=== PATIENT | female | born 1950 | race Caucasian/White ===

== ENCOUNTER → 2017-01-25 | Outpatient (CLI) | payer MEDICARE | END | disposition home or self-care (01) | LOC: RAD 01-24 13:30 | DX: M81.0 Age-related osteoporosis without current pathological fracture (principal); Z76.89 Persons encountering health services in other specified circumstances ==

== ENCOUNTER → 2017-02-01 | Outpatient (CLI) | payer MEDICARE | LOC: MAMMO 01-25 14:00 | DX: Z12.31 Encounter for screening mammogram for malignant neoplasm of breast (principal) ==

== ENCOUNTER → 2017-03-29 | Day surgery (SDC) | payer MEDICARE ==
[~2017-03-29] VITALS: Ht 154.9 cm; Wt 58.1 kg
[~2017-03-29] MED LIST: MAXZIDE 75 MG-1 EACH PO
--- NOTE | ~2017-03-29 | O ---
[place], [place] OPERATIVE NOTE NAME: LOTUS HAINES TY UNIT #: [id number] ROOM: DOCTOR: BILL RDZ MD BIRTHDATE: [birth year] DOS: 03/29/2017 This is a 66-year-old patient who has presented with colonic screening. ALLERGIES: TRAMADOL, FOSAMAX. FAMILY HISTORY: Noncontributory. PAST SURGICAL HISTORY: Tubal and back. PAST MEDICAL HISTORY: Meniere's disease. SOCIAL HISTORY: Nonsmoker, rare alcohol consumer. PROCEDURE: Today's procedure part of investigation is colonoscopy. PREMEDICATION: Versed and Diprivan. SCOPE: Olympus folding colonoscope 10L video. REPORT: After putting the patient in left lateral position and application of lubricant to the scope, the scope was introduced. Thereafter, under direct visualization, advanced through the length of colon without difficulty. Base of the cecum explored. ____ surface identified, ileocecal valve identified. Diverticulosis of moderate degree in the left side of the colon appreciated. Air was suctioned out. The patient was extubated, tolerated the procedure well. IMPRESSION: Diverticulosis of left colon. Otherwise, no polypoid lesion, no other pathology of concern. PLAN AND DISCUSSION: High fiber diet. ACTIVITY: Ad cassius. We will followup routinely with you in office, p.r.n. visit with us in [facility]. I thank you very much indeed for your kind referral [place], [place] OPERATIVE NOTE NAME: LOTUS HAINES TY UNIT #: [id number] ROOM: DOCTOR: BILL RDZ MD BIRTHDATE: [birth year] BILL RDZ MD CM:OPRECORD:OPERATIVE NOTE [id number] BILL RDZ MD 03/29/17 1149 interface
[2017-03-29 07:20] VITALS: BP 144/75
[2017-03-29 09:21] VITALS: BP 95/53
[2017-03-29 09:36] VITALS: BP 114/71
[2017-03-29 09:51] VITALS: BP 130/79
== END | disposition home or self-care (01) ==
LOC: SDC 03-24 10:15
DX: Z12.11 Encounter for screening for malignant neoplasm of colon (principal); K57.30 Diverticulosis of large intestine without perforation or abscess without bleeding; Z88.8 Allergy status to other drugs, medicaments and biological substances; Z98.890 Other specified postprocedural states
CPT/HCPCS: 00810; G0121

== ENCOUNTER → 2019-04-15 | Outpatient (CLI) | payer MEDICARE ==
[~2019-04-15] MED LIST changes: +Motrin,Rufen800 MG PO
== END | disposition home or self-care (01) ==
LOC: RAD 01:34 → MAMMO 08:00
DX: Z12.39 Encounter for other screening for malignant neoplasm of breast (principal); M81.0 Age-related osteoporosis without current pathological fracture; E55.9 Vitamin D deficiency, unspecified; Z78.0 Asymptomatic menopausal state

== ENCOUNTER → 2019-04-25 | Outpatient (CLI) | payer MEDICARE | END | disposition home or self-care (01) | LOC: MAMMO 00:13 | DX: Z12.31 Encounter for screening mammogram for malignant neoplasm of breast (principal) ==

== ENCOUNTER → 2019-07-01 | Outpatient (CLI) | payer MEDICARE | END | disposition home or self-care (01) | LOC: RAD 10:16 | DX: M43.8X5 Other specified deforming dorsopathies, thoracolumbar region (principal); M81.0 Age-related osteoporosis without current pathological fracture ==

== ENCOUNTER → 2020-03-17 | Outpatient (CLI) | payer OTHER ==
[2020-03-17 08:03] LABS: BASO % 0.6 % (0.0-1.0); EOS # 0.2 10*3/uL (0.0-0.4); EOS % 2.3 % (1.0-4.0); HEMATOCRIT 42.2 % (37.0-47.0); LYMPH # 3.2 10*3/uL (1.3-4.4); LYMPH % 49.5 % (27.0-41.0); MEAN CELL VOLUME 93.6 fl (81.0-99.0); MEAN CORPUSCULAR HGB CONC 33.2 g/dl (33.0-37.0); MEAN PLATELET VOLUME 9.4 fl (9.6-12.3); MONO # 0.4 10*3/uL (0.1-1.0); MONO % 6.5 % (3.0-9.0); NEUT # 2.7 10*3/uL (2.3-7.9); NEUT % 40.8 % (47.0-73.0); PLATELET COUNT AUTOMATED 305 10*3/uL (130-400); RED BLOOD COUNT 4.51 10*6/uL (4.10-5.10); WHITE BLOOD COUNT 6.5 10*3/uL (4.8-10.8)
== END | disposition home or self-care (01) ==
LOC: LAB 07:48
PROVIDERS: ATTEND Nurse Practitioner Primary Care
DX: I10 Essential (primary) hypertension (principal)

== ENCOUNTER → 2021-01-12 | Outpatient (CLI) | payer OTHER ==
[2021-01-12 08:08] LABS: BASO % 0.5 % (0.0-1.0); EOS # 0.1 10*3/uL (0.0-0.4); EOS % 1.5 % (1.0-4.0); HEMATOCRIT 40.6 % (37.0-47.0); LYMPH # 2.8 10*3/uL (1.3-4.4); LYMPH % 46.8 % (27.0-41.0); MEAN CELL VOLUME 94.4 fl (81.0-99.0); MEAN CORPUSCULAR HGB 31.4 pg (27.0-31.0); MEAN CORPUSCULAR HGB CONC 33.3 g/dl (33.0-37.0); MEAN PLATELET VOLUME 9.4 fl (9.6-12.3); MONO # 0.5 10*3/uL (0.1-1.0); MONO % 8.3 % (3.0-9.0); NEUT # 2.6 10*3/uL (2.3-7.9); NEUT % 42.7 % (47.0-73.0); PLATELET COUNT AUTOMATED 268 10*3/uL (130-400); RED CELL DISTRI WIDTH 13.2 % (0-14.5)
[2021-01-12 08:27] LABS: ALBUMIN 3.7 gm/dl (3.1-4.5); BUN 16 mg/dl (7-24); CHLORIDE 108 mmol/L (98-107); CHOLESTEROL 224 mg/dL (<200); LDL CHOLESTEROL 129 mg/dL (9-159); POTASSIUM 4.5 mmol/L (3.5-5.1); SGOT/AST 20 IU/L (3-35); SGPT/ALT 22 U/L (12-78); SODIUM 142 mmol/L (136-145); TOTAL PROTEIN 7.5 gm/dL (6.4-8.2); TRIGLYCERIDES 59 mg/dl (<150)
[2021-01-12 08:37] LABS: ALKALINE PHOSPHATASE 78 U/L (45-117); CREATININE 0.73 mg/dL (0.55-1.02)
== END | disposition home or self-care (01) ==
LOC: LAB 07:49
PROVIDERS: ATTEND Nurse Practitioner Primary Care
DX: E03.9 Hypothyroidism, unspecified (principal); I10 Essential (primary) hypertension; E55.9 Vitamin D deficiency, unspecified

== ENCOUNTER → 2021-08-30 | Outpatient (CLI) | payer OTHER | END | disposition home or self-care (01) | LOC: MAMMO 02:21 | PROVIDERS: ATTEND Nurse Practitioner Primary Care | DX: Z12.31 Encounter for screening mammogram for malignant neoplasm of breast (principal); M85.88 Other specified disorders of bone density and structure, other site; M81.0 Age-related osteoporosis without current pathological fracture ==

== ENCOUNTER 2024-08-27 11:29 | Emergency (ER) | payer MEDICARE ==
[~2024-08-27] VITALS: Ht 152.4 cm; Wt 64.4 kg
[2024-08-27 11:37] VITALS: BP 153/72
[2024-08-27] MEDS ORDERED: Albuterol Sulf/Ipratropium 3 ML VIAL NEB ONE (11:45)
[2024-08-27] MEDS ORDERED: methylPREDNISolone sod succ 125 MG VIAL IV ONE (11:45)
[2024-08-27 12:06] LABS: BASO % 0.1 % (0.0-1.0); EOS # 0.2 10*3/uL (0.0-0.4); EOS % 2.4 % (1.0-4.0); HEMATOCRIT 35.2 % (37.0-47.0); MEAN CELL VOLUME 90.7 fl (81.0-99.0); MEAN CORPUSCULAR HGB 31.4 pg (27.0-31.0); MEAN CORPUSCULAR HGB CONC 34.7 g/dl (33.0-37.0); MEAN PLATELET VOLUME 9.1 fl (9.6-12.3); MONO # 0.4 10*3/uL (0.1-1.0); MONO % 6.2 % (3.0-9.0); NEUT # 4.1 10*3/uL (2.3-7.9); NEUT % 57.4 % (47.0-73.0); PLATELET COUNT AUTOMATED 295 10*3/uL (130-400); RED BLOOD COUNT 3.88 10*6/uL (4.10-5.10); RED CELL DISTRI WIDTH 12.5 % (0-14.5); WHITE BLOOD COUNT 7.1 10*3/uL (4.8-10.8)
[2024-08-27] MEDS ORDERED: TRIAMTERENE-HC1 EAC2 PO (12:16)
[2024-08-27] MEDS ORDERED: LIPITOR10 MG PO (12:17)
[2024-08-27 12:26] LABS: BUN 13 mg/dl (9-23); CHLORIDE 101 mmol/L (98-107); POTASSIUM 3.5 mmol/L (3.4-5.1)
[2024-08-27] MEDS ORDERED: MAGNESIUM SULFATE 50 ML IV ONE (12:55)
[2024-08-27] MEDS ORDERED: AMOX-CLAV 875-1 EACH PO (13:08)
[2024-08-27] MEDS ORDERED: AVPAK AZITHROM250 M1 PO (13:08)
[2024-08-27] MEDS ORDERED: AZITHROMYCIN 250 MG TAB PO ONE (13:10)
[2024-08-27] MEDS ORDERED: MAGNESIUM OXIDE 400 MG TAB PO ONE (13:10)
[2024-08-27] MEDS ORDERED: Amoxicillin/Clavulanate Pota 875 MG TAB PO ONE (13:10)
== END 2024-08-27 13:27 | disposition home or self-care (01) ==
LOC: ED 11:29
PROVIDERS: Nurse Practitioner Family
DX: J18.9 Pneumonia, unspecified organism (principal); Z20.822 Contact with and (suspected) exposure to COVID-19; I10 Essential (primary) hypertension; E78.5 Hyperlipidemia, unspecified; Z88.8 Allergy status to other drugs, medicaments and biological substances; Z79.899 Other long term (current) drug therapy

== ENCOUNTER → 2024-09-09 | Outpatient (CLI) | payer MEDICARE ==
[~2024-09-09] MED LIST changes: +AMOX-CLAV 875-1 EACH PO; +AVPAK AZITHROM250 M1 PO; +LIPITOR10 MG PO; +TRIAMTERENE-HC1 EAC2 PO
== END | disposition home or self-care (01) ==
LOC: MAMMO 09-02 09:00 → RAD 09-02 09:30 → MAMMO 08:46
PROVIDERS: ATTEND Internal Medicine
DX: Z12.31 Encounter for screening mammogram for malignant neoplasm of breast (principal); Z13.820 Encounter for screening for osteoporosis; R92.333 Mammographic heterogeneous density, bilateral breasts; M81.0 Age-related osteoporosis without current pathological fracture; E55.9 Vitamin D deficiency, unspecified

== ENCOUNTER → 2024-11-08 | Outpatient (CLI) | payer MEDICARE ==
[2024-11-08 10:23] LABS: T3 UPTAKE 27.3 % (22.4-36.7); THYROXINE (T4) TOTAL 7.6 ug/dl (4.5-10.9)
== END | disposition home or self-care (01) ==
LOC: LAB 03:56 → MRI 10:00
PROVIDERS: ATTEND Psychiatry & Neurology Neurology
DX: I67.82 Cerebral ischemia (principal); G25.0 Essential tremor